=== PATIENT | male | born 1945 | race Caucasian/White ===

== ENCOUNTER 2024-08-10 12:27 | Emergency (ER) | payer MEDICARE, BC ==
[~2024-08-10] VITALS: Ht 167.6 cm; Wt 77.8 kg
[~2024-08-10 12:27] MED LIST: PANT-47 PO; SUCR1ORA12 PO
[2024-08-10 12:36] VITALS: TEMP 97.7
--- NOTE | 2024-08-10 12:41 | Physician Documentation ---
History of Present Illness ~ Chief Complaint: Blood in Urine Stated Complaint: KIDNEY STONES Time Seen by MD: 14:06 HPI A year old male presents with a complaint of left flank pain and hematuria. He states that he has a history of prostate cancer in his being evaluated by a [facility] [place] oncologist. Says he also has a history of kidney stones and and feels as though stone is traveling from his kidneys through his ureters to his bladder. Denies any fever Medication Reconciliation Allergies: Coded Allergies: No Known Allergies (Unverified , 08/10/24) Scheduled Pantoprazole Sodium (PROTONIX tablet), 1 TAB PO DAILY Sucralfate (Carafate), 10 ML PO Q12H Sulfamethoxazole/Trimethoprim (Septra Ds Tab), 1 TAB PO Q12H Past Medical History Past Medical History: *GI/HEPATOBILIARY* Past Surgical History: no surgical history Drug Use: none Lives In: Home Review of Systems All Other Systems at this time: Reviewed and Negative ROS As stated above in the HPI, otherwise all systems are reviewed and negative. Physical Exam Physical Exam General: Alert, no apparent distress. Cardiovascular: Regular rate and rhythm, no murmurs. Gastrointestinal: Soft, nontender, nondistended. Bowels sounds present. Negative CVA tenderness Neurologic: Oriented x4. Psychiatric: Normal mood and affect. Skin: Normal color, warm and dry. No edema, no ecchymosis. Progress Results/Orders Results/Orders Orders - ROGERIO LENTZ TOBACCO DIPPER Cult Urine + [place] Ct (08/10/24 14:35) Ct Abdomen Pelvis (08/10/24 15:00) Completed Orders - ROGERIO LENTZ TOBACCO DIPPER Cbc/Diff (08/10/24 12:38) Amylase (08/10/24 12:38) Lipase (08/10/24 12:38) CMP (08/10/24 12:38) Ua W/Microscopic, Cult If Ind (08/10/24 13:21) Ct Abdomen Pelvis (08/10/24 15:00) Ketorolac Trometh 15mg/Ml Vial (Toradol (08/10/24 14:50) Vital Signs 08/10/24 08/10/24 08/10/24 12:36 14:12 14:14 Temp 97.7 Pulse 90 80 Resp 18 16 14 B/P (MAP) 170/100 112/66 (81) Pulse Ox 98 95 O2 Flow Rate 0 Laboratory Tests Test 08/10/24 13:00 08/10/24 13:21 White Blood Count 5.1 Red Blood Count 4.60 L Hemoglobin 16.2 Hematocrit 47.4 Mean Corpuscular Volume 102.9 H Mean Corpuscular Hemoglobin 35.2 H Mean Corpuscular Hemoglobin Concent 34.1 Red Cell Distribution Width 14.1 Platelet Count 202 Mean Platelet Volume 9.3 Neutrophils (%) (Auto) 60.0 Lymphocytes (%) (Auto) 29.4 Monocytes (%) (Auto) 9.0 Eosinophils (%) (Auto) 1.0 Basophils (%) (Auto) 0.6 Neutrophils # (Auto) 3.1 Lymphocytes # (Auto) 1.5 Monocytes # (Auto) 0.5 Eosinophils # (Auto) 0.1 Basophils # (Auto) 0.0 CBC Comment Sodium Level 141 Potassium Level 4.1 Chloride Level 106 Carbon Dioxide Level 30.6 Anion Gap 4 L Blood Urea Nitrogen 13 Creatinine 0.94 Estimated GFR/1.73 m2 78 BUN/Creatinine Ratio 13.8 Glucose Level 88 Calcium Level 9.0 Total Bilirubin 0.7 Aspartate Amino Transf (AST/SGOT) 78 H Alanine Aminotransferase (ALT/SGPT) 138 H Alkaline Phosphatase 90 Total Protein 7.1 Albumin 3.7 Globulin 3.4 Albumin/Globulin Ratio 1.1 Amylase Level 59 Lipase 40 Chemistry Comments Urine Specimen Description Cln catch midstream Urine Color Yellow Urine Clarity Cloudy Urine pH 6.0 Urine Specific [place] 1.020 Urine Protein 30 H Urine Glucose (UA) Negative Urine Ketones Negative Urine Occult Blood Large H Urine Nitrite Negative Urine Bilirubin Negative Urine Urobilinogen 0.2 Urine Leukocyte Esterase Negative Urine RBC Tntc Urine WBC 5-10 H Urine Squamous Epithelial Cells None seen Urine Amorphous Urates 2+ Urine Bacteria 1+ Urine Mucus None seen Urine Culture Indicated Indicated Volume Urine Centrifuged 10 ml Urine Comment Microbiology Date/Time Source Procedure Growth Status 08/10/24 14:35 Urine Clean Catch Midstream Urine Culture - Preliminary Culture received. Resulted Medical Decision Making Findings And CT findings indicated that he had some small bladder stones cholelithiasis and multiple hernias which the patient was already aware of. Suspect that he pass the stones in his bladder while he was in the ED as he is no longer complaining of any symptoms. States that he was ready to go home. For based on the recent passing of stones of I feel it is imperative to treat him for UTI based on his urinalysis Departure Disposition: HOME / SELF CARE / HOMELESS Impression: Primary Impression: Bladder calculi Condition: Stable Discharge Instructions: Hematuria, Adult, Urinary Tract Infection, Adult Referrals: NO PRIMARY CARE PROVIDER (PCP) Prescriptions Sulfamethoxazole/Trimethoprim (Septra Ds Tab) 800 Mg/160 Mg Tablet 1 TAB PO Q12H for 10 Days, #20 TAB Prov: ROGERIO LENTZ TOBACCO DIPPER 08/10/24 Signature Scribe Signature: y Attestation: The note accurately reflects work and decisions made by me.Rogerio Sykes NP 08/10/24 16:23 ROGERIO LENTZ NP Aug 10, 2024 12:40
[2024-08-10 13:15] LABS: BASOPHILS % (AUTO) 0.6 % (0-1); EOSINOPHILS # (AUTO) 0.1 X10'3 (0-0.9); HEMATOCRIT 47.4 % (42.0-52.0); HEMOGLOBIN 16.2 g/dl (14.0-17.9); LYMPHOCYTES # (AUTO) 1.5 X10'3 (1.1-4.8); LYMPHOCYTES % (AUTO) 29.4 % (21-51); MEAN CORPUSCULAR HEMOGLOBIN 35.2 PG (27.0-31.0); MEAN CORPUSCULAR HGB CONC 34.1 g/dL (33.0-36.5); MEAN CORPUSCULAR VOLUME 102.9 FL (78-98); MEAN PLATELET VOLUME 9.3 FL (7.4-10.4); MONOCYTES # (AUTO) 0.5 X10'3 (0-0.9); NEUTROPHILS # (AUTO) 3.1 X10'3 (1.8-7.7); PLATELET COUNT 202 X10'3 (140-440); RED CELL DISTRIBUTION WIDTH 14.1 % (11.5-14.5); WHITE BLOOD COUNT 5.1 X10'3 (4.5-11.0)
[2024-08-10 13:29] LABS: ALANINE AMINOTRANSFERASE 138 U/L (12-78); ALBUMIN 3.7 G/DL (3.4-5.0); ALBUMIN/GLOBULIN RATIO 1.1 (1.1-1.5); ALKALINE PHOSPHATASE 90 IU/L (46-116); AMYLASE 59 U/L (25-115); ANION GAP 4 (8-16); ASPARTATE AMINO TRANSFERASE 78 U/L (10-37); BILIRUBIN,TOTAL 0.7 MG/DL (0.1-1.0); BLOOD UREA NITROGEN 13 MG/DL (7-18); BUN/CREATININE RATIO 13.8 (10.0-20.0); CHLORIDE 106 MMOL/L (99-107); CREATININE 0.94 MG/DL (0.60-1.10); GLUCOSE 88 MG/DL (70-104); LIPASE 40 U/L (16-77); POTASSIUM 4.1 MMOL/L (3.5-5.1); SODIUM 141 MMOL/L (135-145); TOTAL CARBON DIOXIDE 30.6 MMOL/L (24-32); TOTAL PROTEIN 7.1 G/DL (6.4-8.2); eCRCL 58 ML/MIN; eGFR 78 ML/MIN
[2024-08-10 14:02] LABS: BILIRUBIN,URINE NEGATIVE (Neg); CLARITY,URINE CLOUDY (Clear); COLOR,URINE YELLOW (Yellow); GLUCOSE, URINE NEGATIVE (Neg); KETONES,URINE NEGATIVE (Neg); LEUKOCYTE ESTERASE ,URINE NEGATIVE (Neg); NITRITES, URINE NEGATIVE (Neg); OCCULT BLOOD,URINE LARGE (Neg); PROTEIN,URINE 30 mg/dl (Neg); UROBILINOGEN,URINE 0.2 E.U/dL (0.2-1.0)
[2024-08-10 14:07] LABS: UA COLLECTION TYPE CLN CATCH MIDSTREAM
[2024-08-10 14:33] LABS: BACTERIA,URINE 1+ /HPF (Neg); RBC,URINE TNTC /HPF (0-2); SQUAMOUS EPITHELIAL CELL,UR NONE SEEN /LPF (FEW)
[2024-08-10 14:34] LABS: AMORPHOUS URATES 2+; MUCUS STRANDS NONE SEEN /LPF (Neg)
[2024-08-10] MEDS: ketorolac trometh 15mg/ml vial 15 MG/ML ML IM ONE (14:50)
[2024-08-10] MEDS ORDERED: ketorolac trometh 30MG/ML vial 30 MG/ML VIAL IM ONE (14:50)
--- NOTE | 2024-08-10 15:38 | RADIOLOGY REPORT ---
CLINICAL INFORMATION: 79 years old, Male; kidney stones. TECHNIQUE: Axial CT images of the abdomen and pelvis were obtained without IV contrast. Coronal and s agittal reformatted images were obtained, reviewed, and stored. Evaluation of the parenchymal organs is limited without IV contrast. Evaluation of the bowel and mesentery is limited without oral contras t. All CT scans at this medical facility are performed using dose modulation techniques as appropriat e to a performed exam including the following: Automated exposure control was utilized; adjustment of the MA and/or KV according to patient size; and use of iterative reconstruction technique. CTDIvol = 33.21 mGy DLP = 1672.32 mGy-cm COMPARISON: None FINDINGS: Lung bases: Mild atelectasis in the lower lobes. Liver: Grossly unremarkable in its noncontrast enhanced appearance. No abnormal density or focal lesi on identified. Biliary: Multiple calcified gallstones in the gallbladder. Spleen: Unremarkable. Pancreas: Grossly unremarkable in its noncontrast enhanced appearance. Adrenal glands: Unremarkable. No mass. Kidneys: No hydronephrosis. No renal or ureteral calculi. Small cyst in the right kidney. Aorta/Vascular: Dense atherosclerotic calcification. No abdominal aortic aneurysm. Retroperitoneum: No mass or lymphadenopathy. Bowel/mesentery: No small bowel obstruction. Appendix is visualized and appears unremarkable. Scatte red colonic diverticula without adjacent inflammatory changes to suggest diverticulitis. Pelvic organs: There are brachytherapy seeds in the prostate. Bladder: There are tiny calculi along posterior bladder wall. There are 3 nodular densities adjacent to the bladder wall, possibly attached to the bladder wall, with the largest measuring up to 2.1 cm. Neoplasm, including malignancy not excluded. Abdominal wall: Moderate bilateral fat containing direct inguinal hernias. Small fat containing umbil ical hernia. Postsurgical changes from prior ventral hernia repair just above the level of the umbili terence hernia. Bones: No acute fracture or suspicious intraosseous lesion. IMPRESSION: 1. Nodular densities in the bladder, may be attached to the bladder wall as described above. Neoplasm , including malignancy can not be excluded. 2. Small bladder calculi are seen posteriorly. No renal calculi or ureteral calculi visualized. No hy dronephrosis. 3. Moderate-sized bilateral fat containing direct inguinal hernias. 4. Small fat containing umbilical hernia along the caudal aspect of the prior postsurgical changes fr om ventral hernia repair. 5. Cholelithiasis. 6. Additional findings as detailed above.
[2024-08-10] MEDS ORDERED: SULF1TAB45 PO (15:54)
[2024-08-10 16:26] VITALS: BP 145/85; PULSE 88; RESP 14; O2SAT 96
== END 2024-08-10 16:28 | disposition home or self-care (01) ==
LOC: ER 12:28
DX: N21.0 Calculus in bladder (principal)
CPT/HCPCS: 36415; 74176; 80053; 81001; 82150; 83690; 85025; 87088; 99284